=== PATIENT | female | born 1975 | race Caucasian/White ===

== ENCOUNTER → 2017-05-06 10:31 | Outpatient (CLI) | payer BC, SELFPAY ==
--- NOTE | 2017-05-06 10:49 | XR_ITS ---
XR ankle LT min 3V HISTORY: ITS.REASON: S/P FALL, PAIN AND SWELLING ORDERING PHYSICIAN: Sheridan Ballard PATIENT AGE: 41 years COMPARISON: None FINDINGS: No fracture or dislocation. No lytic or blastic change. There is normal mineralization.. The joint spaces are well-preserved. No significant degenerative/arthritic changes. No erosive changes evident. IMPRESSION: Negative ankle, no acute finding
== END ==
PROVIDERS: PCP Nurse Practitioner; Visit Provider Nurse Practitioner
DX: M25.572 Pain in left ankle and joints of left foot (principal); R60.0 Localized edema
CPT/HCPCS: 73610

== ENCOUNTER 2017-05-06 12:35 | Outpatient (RCR) | payer BC, SELFPAY | END 2017-05-06 12:40 | disposition home or self-care (01) | LOC: PT 12:35 | PROVIDERS: PCP Nurse Practitioner; Visit Provider Orthopaedic Surgery | DX: S99.912A Unspecified injury of left ankle, initial encounter (principal); S93.402A Sprain of unspecified ligament of left ankle, initial encounter | CPT/HCPCS: 97760 ==

== ENCOUNTER → 2019-10-06 12:17 | Outpatient (CLI) | payer BC, SELFPAY ==
[2019-10-06 15:10] LABS: Coronavirus 19 IgG Antibody Negative (Negative); Coronavirus 19 IgM Antibody Negative (Negative)
== END ==
PROVIDERS: PCP Family Medicine; Visit Provider Nurse Practitioner
DX: Z03.818 Encounter for observation for suspected exposure to other biological agents ruled out (principal)
CPT/HCPCS: 36415; 86328

== ENCOUNTER → 2019-11-12 12:33 | Outpatient (CLI) | payer BC, SELFPAY ==
[2019-11-12 14:05] LABS: HCG,Quantitative < 2 mIU/ml (0-5.42)
== END ==
PROVIDERS: Visit Provider Family Medicine
DX: N92.6 Irregular menstruation, unspecified (principal)
CPT/HCPCS: 36415; 84702

== ENCOUNTER → 2020-01-30 15:34 | Outpatient (CLI) | payer BC, SELFPAY | PROVIDERS: PCP Family Medicine; Visit Provider Nurse Practitioner | DX: Z20.828 Contact with and (suspected) exposure to other viral communicable diseases (principal); U07.1 COVID-19 | CPT/HCPCS: U0003 ==

== ENCOUNTER → 2023-02-24 06:36 | Outpatient (CLI) | payer BC, SELFPAY ==
--- NOTE | 2023-02-24 06:41 | CT_ITS ---
FINAL REPORT CLINICAL HISTORY: Sinusitis COMPARISON: None FINDINGS: The paranasal sinuses are well aerated. No significant mucoperiosteal thickening is present in the paranasal sinuses. The ostiomeatal units are patent. There is no fracture. There are no air-fluid levels. IMPRESSION: No significant mucoperiosteal thickening is present in the paranasal sinuses, no air-fluid levels are identified. Reviewed, Interpreted and Dictated by Daniel Pinzon MD Transcribed by Poly Pacheco Authenticated and . [facility]
== END ==
PROVIDERS: PCP Internal Medicine; Visit Provider Nurse Practitioner
DX: J32.9 Chronic sinusitis, unspecified (principal)
CPT/HCPCS: 70486

== ENCOUNTER 2024-12-16 08:50 | Outpatient (CLI) | payer BC, SELFPAY ==
--- OUTSIDE RECORDS SUMMARY | 2019-11-23 07:45 | XMS_ITS | Encounter Summary ---
Author Organization [facility] Address [address] [place] [address] Care Team Providers Care Rhia Name Role Phone Zach Stephenson MD Primary Care Provider + Reason for Referral * Diagnostic Imaging (Routine) - Closed Specialty Diagnoses / Procedures Referred By Miles jung Referred To Contact Radiology Diagnoses RLQ abdominal pain Procedures US Non-ob Transvaginal Hermes Conley DO [facility] [address] [place] [phone] Phone: tel: fax: Referral ID Status Reason Start Date Expiration Date Visits Re quested Visits Authorized [id number] Closed 11/15/2019 11/14/2020 1 1 Reason for Visit * Diagnostic Imaging (Routine) - Closed Specialty Diagnoses / Procedures Referred By Contac fabiana Referred To Contact Radiology Diagnoses RLQ abdominal pain Procedures US Non-ob Transvaginal Hermes Conley DO [facility] [address] [phone] Phone: tel: fax: Referral ID Status Reason Start Date Expiration Date Visits Re quested Visits Authorized [id number] Closed 11/15/2019 11/14/2020 1 1 Encounter Details Date Type Department Care Team (Latest Contact Info) Description 11/23/2019 7:45 AM EDT Hospital Encounter [facility] [address] [phone] RLQ abdominal pain Social History Tobacco Use [...] EDT PAT NAME: ADRIANNE TELLONIE MED REC#: [id number] DA: 1975 PAT GEND: F PAT TYPE: O EXAM RAQUEL: [id number] REF PHYS HERMES CONLEY Indication ======== Pelvic [...] pelvic ultrasound Recommendation Follow-up as clinically indicated. School Supervisor: Jayna Dale RDMS Physician: Theron Morris MD Electronically signed by: Theron Morris MD at: 21:44 Procedure Note Theron Morris MD - 11/23/2019 PAT NAME: QUIQUE TELLO [facility] REC#: [id number] DA: 1975 PAT GEND: F PAT TYPE: O EXAM RAQUEL: [id number] REF PHYS HERMES CONLEY Indication ======== Pelvic [...] Vol31.4 cm Endometrial thickness, total3.2 mm Cervical yetycc79.3 mm Right Ovary Rt ovary:Normal Rt ovary D137.8 mm Rt ovary D222.0 mm Rt ovary D39.3 mm Rt ovary Vol4.0 cm Left Ovary ========= Lt ovary:Normal Lt ovary D122.3 mm Lt ovary D213.1 mm Lt ovary D310.50 mm Lt ovary Vol1.6 cm Cul de Sac ========= Normal. No free fluid visualized Impression ========= Normal pelvic ultrasound Recommendation Follow-up as clinically indicated. School Supervisor: Jayna Dale RDID Physician: Theron Morris MD Electronically signed by: Theron Morris MD at: 21:44 us Hermes Conley DO IMG US ORDERABLES Final Re sult documented in this encounter Visit Diagnoses Diagnosis RLQ abdominal pain Abdominal pain, right lower quadrant documented in this encounter Care Teams Rhia Relationship Specialty Start Date End Date Zach Stephenson MD PCP - General Family Medicine 11/15/19 documented as of this encounter
[2024-12-18 13:12] LABS: Cortisol,AM 6.5 ug/dL (6.2-19.4)
--- OUTSIDE RECORDS SUMMARY | 2024-12-19 08:52 | XMS_ITS | Clinical Summary ---
Author Organization [facility] Address [address] [place] [address] Care Team Providers Care Repair Welder Name Role Phone Unavailable Primary Care Provider Unavailabl e Social History Tobacco Use Types Packs/Day Years Used Date Smoking Tobacco: Never Assessed Comments Unknown Sex and Gender Information Value Date Recorded Sex Assigned at Not on file Legal Sex Female 7:59 PM EDT Gender Identity Not on file Sexual Orientation Not on file Plan of Treatment Health Maintenance Due Date Last Done Comments [facility]-Depression Screening 1975 [facility]-Infant/Child/Adol SDOH Screenings 1975 [facility]- SDOH Screenings 1992 [facility]-Adult SDOH Screenings 1992 [facility]-DTaP,Tdap,and Td Vaccine s (1 - Tdap) 1993 [facility]-Hepatitis B Vaccines (1 of 3 - 19+ 3-dose series) 1993 [facility]-Pap Smear 02/27/2002 02/27/1999, 02/12/1998 [facility]-Cervical Cancer Screening 2004 [facility]-HPV/Cotest 2004 02/27/1999, 02/12/1998 CT Colonography 12/11/2019 Colonoscopy 12/11/2019 FIT-DNA 12/11/2019 FIT 12/11/2019 FOBT 12/11/2019 Sigmoidoscopy 12/11/2019 [facility]-Colorectal Cancer Screening 12/11/2019 [id number] Vaccine (1 - season) 2024 [facility]-Influenza Vaccine (#1) 2024 [facility]-Pneumococcal Vaccine: 50 + Years (1 of 1 - PCV) 2024 [facility]-Zoster Vaccines (1 of 2) 2024 HPV Vaccines Aged Out No longer eligi ble based on patient's age to complete this topic [facility]-HIB Vaccines Aged Out No longer e ligible based on patient's age to complete this topic [facility]-Hepatitis A Vaccines Aged Out No longer eligible based on patient's age to complete this topic [facility]-IPV Vaccines Aged Out No longer e ligible based on patient's age to complete this topic [facility]-Rotavirus Vaccines Aged Out No lo nger eligible based on patient's age to complete this topic Procedures Procedure Name Priority Date/Time Associated Diagnosis Comments CYTO DATA CONVERSION Routine 02/27/1999 12:00 AM EST from Last 3 Months or Most Recently Relevant to Health Maintenance Results * Cytology (02/27/1999 12:00 AM EST) 02/27/1999 02/27/1999 Narrative SUNQUEST - 03/26/1999 12:55 PM EST [facility] MR #: [id number] [facility] [place], [place] [address] 1975 (Age: 23) FW Collect Date: 02/27/1999 00:00 Receipt Date: 02/27/1999 00:00 Page 1 DEPARTMENT OF PATHOLOGY AND LABORATORY MEDICINE CYTOPATHOLOGY REPORT Email: [email or web address] [phone] ATTENDING MD/Practitioner: Anya Mckeon MD Service: OB Location: [facility] Reported: 03/26/1999 12:55 Collected: 02/27/1999 00:00 INTERPRETATION CERVICAL/VAGINAL PAP SMEAR: NO DYSPLASTIC OR MALIGNANT CELLS SEEN. SATISFACTORY BUT LIMITED BY THICKNESS OF SMEAR. Electronically Signed Out By PILAR Loja (ASCP) PILAR Christianson (ASCP) PILAR Loaj (ASCP) Cervical cytology is a screening test primarily for squamous cancers and precursors and has associated false negative and positive results. New technologies such as liquid based sampling may decrease but will not eliminate all false negative results. Regular screening and follow-up of unexplained clinical signs and symptoms are recommended to minimize false negative results. Please see the ASCCP website (www.asccp.org) for followup recommendations. If HPV testing was requested, correlation with the results is suggested (please call Microbiology at [phone] for results). CLINICAL INFORMATION: Menstrual History: Date of Last Menstrual Period: {Not Provided} SPECIMEN DESCRIPTION: A: CERVICAL/VAGINAL PAP SMEAR SMEARS: PAP STAIN ICD: V76.2 CERVIX, SPECIAL SCREENING FOR MALIGNANT NEOPLASM F: A; [id number] SCREEN SNOMED CODES: A; [id number] [id number] M-[id number] In cases where a pathologist has signed out the report, the service has been rendered in part by a resident. The signing pathologist has performed and is responsible for the reported pathologic evaluation. us Historical Provider LAB PATHOLOGY ORDERABLES Fin al Result SUNQUEST from Last 3 Months or Most Recently Relevant to Health Maintenance
--- OUTSIDE RECORDS SUMMARY | 2024-12-19 08:52 | XMS_ITS | Clinical Summary ---
Author Organization [facility] Address [address] [place] [address] Care Team Providers Care Bankruptcy Judge Name Role Phone Zach Stephenson MD Primary Care Provider + Allergies No known active allergies Medications Multiple Vitamins-Mineral s (MULTIVITAMIN ADULT PO) Take by mouth. Active Family History Medical History Relation Name Comments Endometrial cancer Maternal Aunt Breast cancer Neg Hx Colon cancer Neg Hx Ovarian cancer Neg Hx Uterine cancer Neg Hx Relation Name Status Comments Maternal Aunt Social History Tobacco Use Types Packs/Day Years [...] e 12/25/2022 Family and Community Support Answer Gennaro e Recorded Help with Day-to-Day Activities Not [...] on file Sexual Orientation Not on file Last Filed Vital Signs Vital Sign Reading Time Taken Comments Blood Pressure 132/86 11/15/2019 2:22 PM EDT Pulse - - Temperature - - Respiratory Rate - - Oxygen Saturation - - Inhaled Oxygen Concentration - - Weight 94.7 kg (208 lb 12.8 oz) 11/15/2019 2:22 PM EDT Height 170.2 cm (5' 7 ) 11/15/2019 2:22 PM EDT Body Mass Index 32.7 11/15/2019 2:22 PM EDT Plan of Treatment Health Maintenance Due Date Last Done Comments Annual Gynecologic Pelvic and Breast Exam 1975 TDAP/TD VACCINES (1 - Tdap) 1993 MAMMOGRAM 2014 ANNUAL PHYSICAL 11/15/2019 HEPATITIS C SCREENING 11/15/2019 COLOGUARD 12/11/2019 COLON CANCER SCREENING 5 YEAR SIGMOIDOSCOPY 12/11/2019 COLONOSCOPY 12/11/2019 COLORECTAL CANCER SCREENING 12/11/2019 CT COLONOGRAPHY 12/11/2019 FECAL OCCULT BLOOD TEST 12/11/2019 FIT Testing (1 year) 12/11/2019 INFLUENZA VACCINE 10/14/2024 Pneumococcal Vaccine 50+ (1 of 1 - PCV) 2024 ZOSTER VACCINE (1 of 2) 2024 Insurance PPO Care Teams Bankruptcy Judge Relationship Specialty Start Date End Date Zach Stephenson MD PCP - General Family Medicine 11/15/19
--- OUTSIDE RECORDS SUMMARY | 2024-12-19 08:53 | XMS_ITS | Data Portability ---
Author Organization [facility] JENNIFER BrooksS FERNWOOD CLOSED Address [address] [place] [address] Care Team Providers Care Editor Managing Newspaper Name Role Phone ZACH STEPHENSON Primary Care Provider [phone] QI PACK Primary Care Provider Assessment Encounter Date Assessment Date Assessment LastModified by Organization Details LastModified Time 03/26/2020 03/26/2020 MLF 1) Intrinsic tightness with moderate imbalances 2) Mild scar adherence along the palm 3) MCP joint capsular stiffness [email or web address] Not available 03/26/2020 08:07:50 Plan of Treatment Reminders Order Date Submit Date Provider Last Modified By Organization Details Last Modified Time Details Appointments None recorded. Lab FSH (follicle -stimulat ing hormone), serum 2024 025 [facility], [address] [place] [address], [id number], 5 16:30:23 estradiol , serum 2024 025 [facility], [address] [place] [address], [id number], 5 16:30:22 lh (luteiniz ing hormone), serum 2024 025 [facility], [address] [place] [address], [id number], 5 16:30:24 general health panel 2024 025 [facility], [address] [place] [address], [id number], 5 13:09:01 pap, LB 2024 025 [facility], [address] [place] [address], [id number], 5 14:22:15 HPV DNA, high-risk 2024 025 [facility], [address] [place] [address], [id number], 5 16:30:33 Referral dermatolo gist referral 2024 025 [email or web address] 3 [facility], [address] [place] [address] , [place] [address], [place], [address], 5 14:01:20 gastroent erologist referral 2024 025 [email or web address] Not available 5 09:01:02 Procedures None recorded. Surgeries None recorded. Imaging MAMMO, screening , tomosynth esis, bilateral , w/ CAD 2024 025 rc [email or web address] Not available 5 08:59:04 US, transvagi nal 2024 025 [email or web address] Not available 5 10:41:46 Medication Orders rizatript an 10 mg disintegr ating tablet 2024 025 maria antonia [facility], [address] [place], [address], 5 12:35:20 Patient TargetsNo targets recorded. Patient Instructions Encounter Date Encounter Id Patient Instructions Last Modified By Organization Details Last Modified Time 03/26/2020 [id number] STG 1) Improving functional AROM to within 80-90% of the unaffected within an appropriate time-frame from the injury/surgery. 2) Obtain intrinsic length with a PDC of < 1cm and within 80-90% of the unaffected in 3-4 weeks 3) To achieve 80-90% of functional fiber optic technician and pinch strength to maintain normal ADL function Rehab potential is Good Plan of Care (POC: 1-2x/week for 4-6 weeks. [email or web address] Not available 03/26/2020 08:07:50 03/26/2020 [id number] Patient is instructed that it is ok to wash the hand with soap and water now that the sutures have been removed, but should not soak the hand in any type of water for 24 hours. Lotion is OK to use after 24 hours, but no Neosporin or other ointments. The 5 pound weight limit is still in effect for the next 4 weeks. Massage over the incision(s) will help to prevent excessive, thick scars. The palm is a callous, so the skin may peel off from around the incision; the patient can trim off any loose, skin with scissors if needed. The surgical area does not need to be covered. Continue therapy to help maintain motion, or continue the exercises that they were shown on their own. The patient will be scheduled for a 4 week follow-up appointment.[email or web address] Not available 03/26/2020 15:57:55 04/21/2024 [id number] 1. Nasal Endosco py performed in office today. Full risks, complications, and benefits of non-operative intervention have been thoroughly discussed. Understanding was expressed, informed consent given, and we will proceed with the discussed operative treatment plan. There were no questions for me at the end of the office visit. 2. Rx- Rizatriptan 10mg tablet, dispense 8 3. F/u prn [email or web address] Not available 04/21/2024 09:03:36 Reason for Referral Termite Inspector Referral for Screening for malignant neoplasm of colon Referring Physician: Comfort Parikh SORT SUPERVISOR, Encounter Date: 04/21/2024 Count Team Clerk Referral for S creening for malignant neoplasm of skin Referring Physician: Comfort Parikh SORT SUPERVISOR, Encounter Date: 04/21/2024 Results Created Date Observation Date Name Description Value Unit Range Abnormal Flag Note LastModifiedBy Organization Detail LastModifiedTime 03/10/20 20 03/12/2020 SARS CoV 2 RNA (COVI D-19) , QL, civil design technician-P CR, respi rator y speci men sars cov2 result NEGATI VE normal Not Available [facility] [address] [place] [address], [id number], 03/12/2020 09:44:29 04/21/19 25 04/21/2024 GENER AL HEALT H PANEL glucose 112 mg/dL 74-100 high Not Available [facility] [address] [place] [address], [id number], 04/21/2024 16:30:20 04/21/19 25 04/21/2024 GENER AL HEALT H PANEL blood urea nitrogen 13 mg/dL 6-20 normal Not Available [facility] [address] [place] [address], [id number], 04/21/2024 16:30:20 04/21/19 25 04/21/2024 GENER AL HEALT H PANEL creatinine 0.68 mg/dL 0.50-0 .95 normal Not Available [facility] [address] [place] [address], [id number], 04/21/2024 16:30:20 04/21/19 25 04/21/2024 GENER AL HEALT H PANEL BUN/creatini ne ratio 19 (calc ) 10-20 normal Not Available [facility] [address] [place] [address], [id number], 04/21/2024 16:30:20 04/21/19 25 04/21/2024 GENER AL HEALT H PANEL sodium 141 mmol/ L 136-14 5 normal Not Available [facility] [address] [place] [address], [id number], 04/21/2024 16:30:20 04/21/19 25 04/21/2024 GENER AL HEALT H PANEL potassium 4.2 mmol/ L 3.4-5. 0 normal Not Available [facility] [address] [place] [address], [id number], 04/21/2024 16:30:20 04/21/19 25 04/21/2024 GENER AL HEALT H PANEL chloride 105 mmol/ L 98-107 normal Not Available [facility] [address] [place] [address], [address], 04/21/2024 16:30:20 04/21/19 25 04/21/2024 GENER AL HEALT H PANEL carbon dioxide 23 mmol/ L 22-31 normal Not Available [facility] [address] [place] [address], [address], 04/21/2024 16:30:20 04/21/19 25 04/21/2024 GENER AL HEALT H PANEL anion gap 13 (calc ) 7-25 normal Not Available [facility] [address] [place] [address], [id number], 04/21/2024 16:30:20 04/21/19 25 04/21/2024 GENER AL HEALT H PANEL calcium 10.1 mg/dL 8.6-10 .2 normal Not Available [facility] [address] [place] [address], [address], 04/21/2024 16:30:20 04/21/19 25 04/21/2024 GENER AL HEALT H PANEL total protein 7.6 g/dL 6.4-8. 3 normal Not Available [facility] [address] [place] [address], [address], 04/21/2024 16:30:20 04/21/19 25 04/21/2024 GENER AL HEALT H PANEL albumin 4.5 g/dL 3.5-5. 2 normal Not Available [facility] [address] [place] [address], [address], 04/21/2024 16:30:20 04/21/19 25 04/21/2024 GENER AL HEALT H PANEL globulin 3.1 1.5-4. 5 normal Not Available [facility] [address] [place] [address], [address], 04/21/2024 16:30:20 04/21/19 25 04/21/2024 GENER AL HEALT H PANEL albumin/glob ulin ratio 1.5 (calc ) 1.1-2. 5 normal Not Available [facility] [address] [place], [address], 04/21/2024 16:30:20 04/21/19 25 04/21/2024 GENER AL HEALT H PANEL bilirubin, total 0.3 mg/dL 0.1-1. 2 normal Not Available [facility] [address] [place], [address], 04/21/2024 16:30:20 04/21/19 25 04/21/2024 GENER AL HEALT H PANEL alkaline phosphatase 97 U/L 30-121 normal Not Available [facility] [address] [place], [address], 04/21/2024 16:30:20 04/21/19 25 04/21/2024 GENER AL HEALT H PANEL AST 26 U/L 0-32 normal Not Available [facility] [address] [place], [address], 04/21/2024 16:30:20 04/21/19 25 04/21/2024 GENER AL HEALT H PANEL ALT 32 U/L 0-33 normal Not Available [facility] [address] [place], [address], 04/21/2024 16:30:20 04/21/19 25 04/21/2024 GENER AL HEALT H PANEL GFR 106 >= 60 normal NOT E New calcu latio n for GFR (CKD- EPI 2020) is formu lated witho ut race adjus tment facto rs at the recom menda tion of the [employer] [facility] and [facility] Nephr ology . This calcu latio n has not been valid ated in pregn ant women . For pedia tric patie nts refer to https ://charles iverson.o rg/pr ofess ional s/KDO QI/gf r_cal culat orPed Not Available [facility] [address] [place] [address], [address], 04/21/2024 16:30:20 04/21/19 25 04/21/2024 GENER AL HEALT H PANEL white blood cells 7.3 10*3/ uL 3.8-10 .8 normal Not Available [facility] [address] [place] [address], [address], 04/21/2024 16:30:20 04/21/19 25 04/21/2024 GENER AL HEALT H PANEL red blood cells 4.85 10*6/ uL 3.80-5 .20 normal Not Available [facility] [address] [place] [address], [id number], 04/21/2024 16:30:20 04/21/19 25 04/21/2024 GENER AL HEALT H PANEL hemoglobin 13.5 g/dL 12.0-1 6.0 normal Not Available [facility] [address] [place] [address], [address], 04/21/2024 16:30:20 04/21/19 25 04/21/2024 GENER AL HEALT H PANEL hematocrit 40.2 % 35.0-4 7.0 normal Not Available [facility] [address] [place] [address], [address], 04/21/2024 16:30:20 04/21/19 25 04/21/2024 GENER AL HEALT H PANEL MCV 83 fL 80-100 normal Not Available [facility] [address] [place] [address], [address], 04/21/2024 16:30:20 04/21/19 25 04/21/2024 GENER AL HEALT H PANEL MCH 28 pg 26-35 normal Not Available [facility] [address] [place] [address], [address], 04/21/2024 16:30:20 04/21/19 25 04/21/2024 GENER AL HEALT H PANEL MCHC 34 g/dL 32-36 normal Not Available [facility] [address] [place] [address], [address], 04/21/2024 16:30:20 04/21/19 25 04/21/2024 GENER AL HEALT H PANEL RDW 15.7 % 11.0-1 5.0 high Not Available [facility] [address] [place] [address], [address], 04/21/2024 16:30:20 04/21/19 25 04/21/2024 GENER AL HEALT H PANEL MPV 7.5 fL 6.2-10 .5 normal Not Available [facility] [address] [place] [address], [address], 04/21/2024 16:30:20 04/21/19 25 04/21/2024 GENER AL HEALT H PANEL platelet count 298 10*3/ uL 150-40 0 normal Not Available [facility] [address] [place] [address], [address], 04/21/2024 16:30:20 04/21/19 25 04/21/2024 GENER AL HEALT H PANEL neutrophil,a bsolute 4.3 10*3/ uL 1.6-8. 4 normal Not Available [facility] [address] [place] [address], [address], 04/21/2024 16:30:20 04/21/19 25 04/21/2024 GENER AL HEALT H PANEL lymphocyte,a bsolute 2.3 10*3/ uL 0.4-5. 1 normal Not Available [facility] [address] [place] [address], [address], 04/21/2024 16:30:20 04/21/19 25 04/21/2024 GENER AL HEALT H PANEL monocyte,abs olute 0.5 10*3/ uL 0.0-1. 2 normal Not Available [facility] [address] [place] [address], [id number], 04/21/2024 16:30:20 04/21/19 25 04/21/2024 GENER AL HEALT H PANEL eosinophil,a bsolute 0.1 10*3/ uL 0.0-0. 8 normal Not Available [facility] [address] [place] [address], [address], 04/21/2024 16:30:20 04/21/19 25 04/21/2024 GENER AL HEALT H PANEL basophil,abs olute 0.0 10*3/ uL 0.0-0. 3 normal Not Available [facility] [address] [place] [address], [address], 04/21/2024 16:30:20 04/21/19 25 04/21/2024 GENER AL HEALT H PANEL % neutrophils 59.1 % 42.0-7 8.0 normal Not Available [facility] [address] [place] [address], [address], 04/21/2024 16:30:20 04/21/19 25 04/21/2024 GENER AL HEALT H PANEL % lymphocytes 32.2 % 11.0-4 7.0 normal Not Available [facility] [address] [place] [address], [address], 04/21/2024 16:30:20 04/21/19 25 04/21/2024 GENER AL HEALT H PANEL % monocytes 6.6 % 0.0-11 .0 normal Not Available [facility] [address] [place] [address], [address], 04/21/2024 16:30:20 04/21/19 25 04/21/2024 GENER AL HEALT H PANEL % eosinophils 1.6 % 0.0-7. 0 normal Not Available [facility] [address] [place] [address], [address], 04/21/2024 16:30:20 04/21/19 25 04/21/2024 GENER AL HEALT H PANEL % basophils 0.5 % 0.0-3. 0 normal Not Available [facility] [address] [place] [address], [address], 04/21/2024 16:30:20 04/21/19 25 04/21/2024 GENER AL HEALT H PANEL nucleated red cells 0.0 % 0.0-0. 9 normal Not Available [facility] [address] [place] [address], [address], 04/21/2024 16:30:20 04/21/19 25 04/21/2024 GENER AL HEALT H PANEL nucleated RBCs, absolute 0.00 10*3/ uL not estab. normal Not Available [facility] [address] [place] [address], [address], 04/21/2024 16:30:20 04/21/19 25 04/21/2024 GENER AL HEALT H PANEL TSH 1.290 u[IU] /mL 0.270- 4.200 normal Not Available [facility] [address] [place] [address], [address], 04/21/2024 16:30:20 04/21/19 25 04/21/2024 ESTRA DIOL estradiol <5.0 pg/mL 0.0-39 8.0 normal Refer ence range is based on non-p regna nt women . NOTE: Due to the risk of cross -reac tivit y, the Marlo Estra diol assay used by our labor anton choe not be order ed when monit oring estra diol level s in patie nts being treat ed with Fulve stran t. An alter tyra metho d such as LC/MS , which is not expec isaac to show cross -reac tivit y to Andrewve cyndi payan be used to measu re estra diol hiwot ntrat ions. Stero id drugs may inter fere with this test. ESTRA DIOL EXPEC ISAAC VALUE S HEALT HY WOMEN : FOLLI CULAR PHASE 12.4 - 233 pg/mL OVULA TION PHASE 41.0 - 398 pg/mL LUTEA L PHASE 22.3 - 341 pg/mL POSTM ENOPA USE < 5.0 - 138 pg/mL HEALT HY PREGN ANT WOMEN : 1st TRIME STER 154 - 3243 pg/mL 2nd TRIME STER 1561 - 21,28 0 pg/mL 3rd TRIME STER 8525 - > 30,00 0 pg/mL . Not Available [facility] [address] [place] [address], [address], 04/21/2024 16:30:22 04/21/19 25 04/21/2024 FOLLI TOAN STIM. HORMO NE follicle stim. hormone 37.4 m[IU] /mL 1.7-13 4.8 normal FSH EXPEC ISAAC VALUE S FEMAL ES: FOLLI CULAR PHASE : 3.5 - 12.5 MIU/M L OVULA TION PHASE : 4.7 - 21.5 MIU/M L LUTEA L PHASE : 1.7 - 7.7 MIU/M L POST MENOP AUSE: 25.8 - 134.8 MIU/M L . Not Available [facility] [address] [place] [address], [address], 04/21/2024 16:30:23 04/21/19 25 04/21/2024 LUTEN IZING HORMO NE lutenizing hormone 27.7 m[IU] /mL 1.0-95 .6 normal LH EXPEC ISAAC VALUE S WOMEN : FOLLI CULAR PHASE 2.4-1 2.6 mIU/m L OVULA TION PHASE 14.0- 95.6 mIU/m L LUTEA L PHASE 1.0-1 1.4 mIU/m L POSTM ENOPA USE 7.7-5 8.5 mIU/m L . Not Available [facility] [place], [address], 04/21/2024 16:30:24 04/21/19 25 04/22/2024 HPV, HIGH RISK high risk HPV Negati ve negati ve normal This assay detec ts E6/E7 viral messe nger RNA (mRNA ) from 14 high- risk HPV types (16,1 8,31, 33,35 ,39,4 5,51, 52,56 , 58,59 ,66,6 8) witho ut diffe renti ation . Sensi tivit y may be affec isaac by speci men colle ction metho ds, stage of infec tion, and the prese nce of inter ferin g subst ances . Resul ts shoul d be inter prete d in conju nctio n with other avail able labor atory and clini willow data. A negat antoinette Aptim a HPV assay resul t does not exclu de the possi bilit y of cytol ogic abnor malit ies or futur e or under lying CIN2, CIN3, or cance r. This test is inten ded for medic al purpo ses and has not been evalu ated in cases of suspe cted abuse . This assay is not inten ded for use as a scree dioni devic e for women under age 30 with ilene l cervi willow cytol ogy. The Aptim a HPV assay is not inten ded to subst itute for regul ar cervi willow cytol ogy. Test metho dolog y is Nucle ic Acid Ampli ficat ion (NAAT ) Not Available [facility] [address] [facility], [place], [address], 04/22/2024 16:30:33 04/21/19 25 04/21/2024 PAP SMEAR Pap smear SEE BELOW normal Depar tment of Patho logy GYNEC OLOGI WILLOW CYTOL OGY REPOR T NAME: STEVEN JONES ANDERS E PATHO LOGY NO.: [id number] Copy to: SOURC E OF SPECI MEN: CERVI WILLOW/E NDOCE RVICA L-THI N PREP RELEV ANT HISTO RY: No LMP given . PMB: Y Comme nt: HPV CO-TE STING SPECI MEN ADEQU ACY SATIS FACTO RY FOR EVALU ATION . ENDOC ERVIC AL/TR ANSFO RMATI ON ZONE COMPO NENT PRESE NT GENER AL CATEG ORIZA TION NEGAT ANTOINETTE FOR INTRA EPITH ELIAL LESIO N OR MALIG FIDE RELAT ED LABOR ATORY RESUL TS Test Name Resul fabiana Colle cted D and T HIGH RISK HPV Negat antoinette 025 10:41 KATHR CARO TESFAYE S, CT (ASCP ) Sushma d Out Date: 05/02 14:21 Cervi willow/v agina l cytol ogy is a scree dioni test with a recog nized false negat antoinette rate. New techn ologi es may decre ase, but will not elimi tyra false negat antoinette resul ts. Regul ar cytol ogy scree dioni is recom trini d to minim ize false negat antoinette resul ts. The ThinP rep(R ) Imagi ng syste m is used to cooper t in prima ry cervi willow cance r scree dioni of ThinP rep(R ) Pap test slide s. Page 1 of 1 Not Available [facility] [address] [place] [address], [place], [address], 05/02/2024 14:22:15 04/21/19 25 01/13/2024 US, trans vagin al No observ ation record ed. [email or web address] Not Available 04/25 15:35:22 05/05/19 25 05/05/2024 US, trans vagin al [facility] [address] [place] [address] Simone jung Name: QUIQUE jung : 975 Simone jung 90 Orderi ng Provid er: COMFORT BEAL GTON EXAM DATE: 2024 EXAM: US PELVIS GOLF COURSE MANAGER TRANSV AGINAL CLINIC AL INFORM ATION: Pain TECHNI QUE: Multip le sonogr aphic images of the pelvis were obtain ed throug h transv aginal route. COMPAR ZOE: None. FINDIN GS: UTERUS : Size = 5.5 x 2.3 x 4.4 cm. EMS thickn ess = 4.2 mm. Anteve rted, antefl exed, normal in size. Hetero geneou s appear ance of the uterus can indica te tiny underl raul fibroi ds. RIGHT ADNEXA : Ovary size = 2.7 x 1.2 x 1.9 cm. Normal in size and appear ance. No adnexa l mass. LEFT ADNEXA : Ovary size = 1.7 x 1.3 x 1.2 cm. Normal in size and appear ance. No adnexa l mass. CUL-DE -SAC: No fluid or mass IMPRES ANTHONY: Hetero geneou s appear ing uterus Interp reted By: Mike Lechuga MD Electr onical ly Signed By: Mike Lechuga MD on 025 12:48 PM [facility] [address], [place], [address], 05/12/2024 14:21:13 Result Notes None recorded. Problems No Known Problems Procedures Surgical History Date Name Laterality Status Provider Name and Address Organization Details Recorded Time 04/21/19 25 Pap Smear collection completed COMFORT PARIKH, TELEPHONE TRIAGE NURSE [address] [place], [address], [facility] 04/21/2024 12:11:54 04/21/19 25 Endoscopy Nasal; Diagnostic completed [facility] 04/21/2024 09:00:17 03/26/19 21 OT Manual Therapy completed ROSANA MUNOZ/L, CHT [address] [place], [address], [facility] 03/26/2020 16:56:55 03/26/19 21 PT Hot/Cold Pack completed ROSANA MUNOZ/L, CHT [address] [place], [address], [facility] 03/26/2020 16:03:19 03/19/19 21 OT Evaluation - Moderate complexity completed ROSANA MUNOZ/[place], CHT [address] [place], [address] 03/19/2020 08:04:12 04/21/18 97 functional endoscopic sinus surgery completed [facility] 04/21/2024 08:32:30 [facility] 10:03:30 Imaging Results None recorded. Procedure Notes None recorded. Medical Equipment None Reported. Allergies No known drug allergies Medications Name Sig Start Date Stop Date Status Note LastModified by Organization Details LastModified Time tramadol 50 mg tablet TAKE 1 TABL PO Q 6 HRS PRN FOR UNCONTROL LED PAIN 03/26 completed Not Available Not Available Not Available meloxicam 7.5 mg tablet TAKE 1 TABLE PO QD WITH FOOD REGARDLES S OF PAIN LEVEL FOR 1 WEEK. THEN TAKE 1 TABLET PO QD ONLY PRN FOR PAIN RELIEF THEREAFTE R 03/26 completed Not Available Not Available Not Available rizatriptan 10 mg disintegrat ing tablet TAKE 1 TABLET, ONLY 1 IN 24 HRS, WITH THE ONSET OF SYMPTOMS. UP TO 8 IN 30 DAYS 2024 active Not Available Not Available Not Avai lable Neurontin 100 mg capsule TAKE 1 CAPSULE PO QHS FOR 1 WEEK 03/26 completed Not Available Not Available Not Available Ubrelvy 100 mg tablet Take by oral route as needed. active Not Available Not Available No t Available Vitals Date Recorded Body height Body mass index (BMI) Body weight Pain severity - 0-10 verbal numeric rating [Score] - Reported Systolic And Diastolic Provider Name and Address Organization Details Last Updated DateTime 03/26/2020 170.18 cm 31.3 kg/m2 49339.47 g 5 220/130 mm[Hg] Eloisa Lemus [facility] 1 15:42:25 Date Recorded Body temperature Body height Body mass index (BMI) Body weight Heart rate Systolic And Diastolic Provider Name and Address Organization Details Last Updated DateTime 5 97.1 [degF] 170.18 cm 35.8 kg/m2 131158. 86 g 102 /min 164/109 mm[Hg] Juan Carlos Earl [facility] 5 08:11:12 Date Recorded Body height Body mass index (BMI) Body weight Systolic And Diastolic Provider Name and Address Organization Details Last Updated DateTime 04/21/2024 170.18 cm 35.1 kg/m2 676197.69 g 160/80 mm[Hg] [facility] 04/21[facility]24 10:01:17 Social History Question Answer Notes LastModified by Organizat ion Details LastModified Time Tobacco Smoking Status Never Smoker Eloisa Ybarar [facility] 02/22/2020 10:50:00 Which Of Your Hands Is Dominant? Right Information not available 03/26/2020 What Was The Date Of Your Most Recent Tobacco Screening? 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 Family History Relationship Description Onset Age of this Age Resolved Age Notes LastModified by Organization Details LastModified Time Father No current problems or disability [email or web address] Not available 03/17 09:09:10 Mother No current problems or disability [email or web address] Not available 03/17 09:09:10 Maternal Aunt Endometrial carcinoma [email or web address] Not available 2024 10:03:20 Medical History No medical history recorded. Gynecological History Statement/Question Response Abnormal Pap Y Flow Heavy Regular Cycles N Date of Last Mammogram Date of LMP 10/14/2022 STIs/STDs N Real Heavy Periods Y HPV Vaccine N Duration of Flow (days) 5 Age at Menarche 12 Current Control Method Tubal Ligat ion Painful Periods Y Menses Monthly N Date of Last Pap Smear Obstetrics History GPAL:G 2 P 0 0 0 0 Past Encounters Encounter ID Performer Location Encounter Start Date Encounter Closed Date Diagnosis/Indication Diagnosis SNOMED-CT Code Diagnosis ICD10 Code Diagnosis IMO Codes Diagnosis Note [id number] ZACH LONDONO MD [facility] [address] [place] [id number] 02/22/2020 10:44:52 02/22/2020 11:10:45 Trigger finger of left hand [id number] M65.30 Left ring finger, with retinacula r ganglion cyst of the palmar digital flexion crease. She will consider surgical management which will consist of excision of the cyst with release of the A1 carley. This can be done under local anesthetic Scheduled for 15 minutes, I would make incision of the palmar digital flexion crease and use the S2S tome to release the A1 carley after excision of the cyst. She will call to schedule, we can also try an injection through the cystTo give her some relief but she has had injections in the past without resolving the issue. [id number] ZACH LONDONO MD SURGERY SCHEDULE [address] [place] [address] 03/13/2020 11:06:54 03/13/2020 11:08:22 [id number] LETTY CALZADA, OTR/L, CHT PHYSICAL THERAPY / HAND THERAPY [facility] [address] [place] [address] 03/19/2020 09:35:49 03/19/2020 10:38:28 Trigger finger of left hand [id number] M65.30 TFR Ring Finger [id number] ROSANA MUNOZ/L, CHT PHYSICAL THERAPY / HAND THERAPY [facility] [address] [place] [address] 03/26/2020 15:33:23 03/26/2020 17:16:51 Trigger finger of left hand [id number] M65.30 TFR Ring Finger [id number] WILLEM CALDERON PA-C [facility]TH[facility] [address] [address] 03/26/2020 15:31:29 03/26/2020 15:54:40 Trigger finger of left hand [id number] M65.30 doing well status post release of the left ring trigger finger and excision of a retinacula r ganglion cyst. 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 Rec lipid panel with PCP for monitoring . Likely somewhat genetic.Di scussed that there are not great treatment options. hyferation , excision.O ffered to send to Dr. Parry to discuss treatment options - pt declines at this time Solar lentigo [id number] L 81.4 - Benign brown spots- Sun-induce d [id number] TATIANA BHAKTA MD [facility] [address] [place] [address] 04/21/2024 08:03:50 04/21/2024 09:11:30 Nasal congestion [id number] R09.81 right sided Allergic rhinitis 760638 04 J30.9 immunother apy in childhood Migraine 29002634 G43.90 9 right sided nasal migraine, teo-sensi tivity and fragrance sensitivit y History of nasal sinus surgery [id number] Z98.890 1996 @ , ESS and rhinoplast y [id number] COMFORT PARIKH APRN [facility] [address] [place] [address] 04/21/2024 09:45:33 04/21/2024 10:37:12 Screening for malignant neoplasm of cervix 914375405 Z12.4 Gynecologi c examination 21151916 Z01.419 PAP todaywill contact patient with resultspat ient to follow up in one year or sooner as needed Pain in pelvis 91194655 R10.2 patient reports intermitte nt pain in right lower pelvis since Septemberwill evaluate with ultrasound and labspatien t to follow up on same day as ultrasound to discuss results and plan of care Amenorrhea [id number] N91. 2 No menses since 3pati ent reports that she did not have ultrasound or labs that indicated menopausew ill evaluate with labs and ultrasound since patient also reporting pelvic painpatien t to follow up on same day as ultrasound to discuss results and plan of care Screening for malignant neoplasm of colon 230603072 Z12.11 initial routine screening Screening for malignant neoplasm of skin 323379184 Z12.83 routine screening Screening for malignant neoplasm of breast 886242197 Z12.39 repeat mammogram Elevated blood-pressure reading without diagnosis of hypertension 762225606 R03.0 BP today of 160/80Disc ussed elevation with patient. Patient reports that she just came from ENT where scope was done and that she will follow this with recheck at home and with PCP Health Concerns Section Related Observation LastModified by Organization Detai ls LastModified Time None Recorded Concern Status LastModified by Organization Details LastModified Time None Recorded Advance Directives Directive None Recorded Payers Insurance Date Sequence Insurance Name Policy Number Policy [place] Covered Member ID [place] Member ID Guarantor Name 07/18/2024 1 [place] [id number] Pramod Tello [id number] Quique Tello 03/19/2020 1 [place] [id number] Pramod Tello [id number] Quique Tello Notes Date Note Type Note Provider Name and Address Organization Details Recorded Time 03/26/2020 text/html The patient is here for a routine scheduled postoperative follow-up visit. Her blood pressure is extremely high at today's visit at 220/130 mmHg. She denies any shortness of breath, chest pain, no headache. Primary Care Physician: Dr. Zach Stephenson Hand dominance: Right Location: Left RF Pain level: 10 Recent Surgery: Yes Procedure: Release trigger finger with S2S trigger tome; Excision retinacular ganglion cyst right ring finger Date of surgery: 03-13-2020 Duration: 13 day(s) GP 06-09-20 In office procedure? No Previous upper extremity surgery? 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 Yes Is this injury associated with a Workers Compensation claim? No patient states she removed her sx dressing on sutures removed WILLEM CALDERON PA-C [address] [place], [address], [facility] 03/26/2020 15:58:00 03/26/2020 text/html Patient History: Pt reports that she got her sutures out, and she is progressing very well. Pain (0-10): No c/o pain Pain in last 24 hours (0-10: How often symptoms experienced Constantly (76-100%), Frequently (51-75%), Occasionally (26-50%), Intermittently (0-25%): Interm. prior to surgery DOI: DOS: 03-13-2020 Performance Deficits: Pt reports having at least 3 performance deficits that are limiting ADL and IADL functional secondary to having hand/arm surgery/injury. LETTY CALZADA, OTR/L, CHT [address] [place], [address], [facility] 03/26/2020 16:57:16 03/17/2024 text/html Specific spot to check Location: Spot under left eyebrowGeneral duration: ~2 yearsPredominant symptom:asymptomaticPri or treatment(s):[place] oil, apple cider viengar, histofreezeHistory of evolution:changing PRIYANKA WHITE PA-C [address] [place], [address], [facility] 03/17/2024 12:20:27 04/21/2024 text/html ROS as noted in the HPI Quique comes in today for an evaluation of right sided nasal congestion. Pt has a history of ESS and rhinoplasty performed at . She was able to breath well through her nose for many years after her operation, but has had right sided nasal congestion for the past 5+ years. She has used Flonase nasal spray in the past, but not recently. Pt does suffer from seasonal allergies. She was on allergy shots in childhood. Pt has frequent headaches presenting the the right frontal region. Her headaches are often triggered by changes and weather and by strong fragrances. PT has tried using sumatriptan to treat her migraine in the past. TATIANA BHAKTA MD [address] [place], [address], [facility] 04/21/2024 18:52:12 04/21/2024 text/html 48 year old female presents today as new patient for annual WWElast PAP: none on record: patient reports PAP 2019: LMP: 3denies any further bleeding or spotting since then current contraception: BTL last mammogram: none on record: per patient report 2019 colon screening: none on record: patient reports that she has not had colon screening yet family history: negative for breast, colon or ovarian cancermaternal aunt with endometrial cancer COMFORT PARIKH APRN [address] [place], [address], [facility] 04/21/2024 12:13:26 OBGyn Episode No OBEpisode recorded.
== END 2024-12-16 23:59 ==
LOC: LAB.DROPOF 12-19 08:50
PROVIDERS: PCP Nurse Practitioner Family; Visit Provider Nurse Practitioner Family
DX: R79.89 Other specified abnormal findings of blood chemistry (principal)
CPT/HCPCS: 82533

== ENCOUNTER 2025-01-13 12:24 | Outpatient (CLI) | payer BC, SELFPAY ==
--- OUTSIDE RECORDS SUMMARY | 2019-11-23 07:45 | XMS_ITS | Encounter Summary ---
Author Organization [facility] Address [address] [place] [address] Care Team Providers Care Aerial Survey Technician Name Role Phone Zach Stephenson MD Primary Care Provider + Reason for Referral * Diagnostic Imaging (Routine) - Closed Specialty Diagnoses / Procedures Referred By Miles jung Referred To Contact Radiology Diagnoses RLQ abdominal pain Procedures US Non-ob Transvaginal Hermes Conley DO [facility] [address] [place] [phone] Phone: tel: fax: Referral ID Status Reason Start Date Expiration Date Visits Re quested Visits Authorized [id number] Closed 11/15/2019 11/14/2020 1 1 Reason for Visit * Diagnostic Imaging (Routine) - Closed Specialty Diagnoses / Procedures Referred By Contac fabiana Referred To Contact Radiology Diagnoses RLQ abdominal pain Procedures US Non-ob Transvaginal Hermes Conley DO [facility] [address] [phone] Phone: tel: fax: Referral ID Status Reason Start Date Expiration Date Visits Re quested Visits Authorized [id number] Closed 11/15/2019 11/14/2020 1 1 Encounter Details Date Type Department Care Team (Latest Contact Info) Description 11/23/2019 7:45 AM EDT Hospital Encounter [facility] [address] [phone] RLQ abdominal pain Social History Tobacco Use Types Packs/Day Years Used Date Smoking Tobacco: Never Smokeless Tobacco: Never Alcohol Use Standard Drinks/Week Comments Not Currently 0 (1 standard drink = 0.6 oz pur e alcohol) Abuse Screen Answer Date Recorded Unsafe at Home or Work/School Not on file Feels Threatened by Someone? Not on file 02/2023 Does Anyone Keep You from Co ntacting Others or Doint Things Outside the Home? Not on file 12/25/2022 Physical Sign of Abuse Present Not on file 1 Housing Stability Answer Date Recorded Current Living Arrangements Not on file 12/14 Potentially Unsafe Housing Conditions Not on basil e 12/25/2022 Family and Community Support Answer Raquel e Recorded Help with Day-to-Day Activities Not on file 12/25/2022 Lonely or Isolated Not on file 12/25/2022 Employment Answer Date Recorded Do you want help finding or keeping work or a rose b? Not on file 12/25/2022 Disabilities Answer Date Recorded Concentrating, Remembering, or Making Decisions Difficulty Not on file 12/25/2022 Doing Errands Independently Difficulty Not on fi le 12/25/2022 Education Answer Date Recorded Help with school or training? Not on file Preferred Language Not on file 12/25/2022 Comments Unknown Sex and Gender Information Value Date Recorded Sex Assigned at Not on file Legal Sex Female 2:51 PM EDT Gender Identity Not on file Sexual Orientation Not on file documented as of this encounter Plan of Treatment Not on file documented as of this encounter Procedures Procedure Name Priority Date/Time Associated Diagnosis Comments US NON-OB TRANSVAGINAL Routine 11/23/2019 8:38 AM EDT RLQ abdominal pain documented in this encounter Results * US Non-ob Transvaginal (11/23/2019 8:38 AM EDT) Anatomical Region Laterality Modality Body Ultrasound 11/23/2019 9:23 AM EDT Narrative 11/23/2019 9:44 PM EDT PAT NAME: ADRIANNE TELLONIE MED REC#: [id number] DA: 1975 PAT GEND: F PAT TYPE: O EXAM RAQUEL: [id number] REF PHYS HERMES CONLEY Indication ======== Pelvic pain - RLQ Dx: RLQ abdominal pain [R10.31 (ICD-10-CM)] History ====== Previous Outcomes 4 Para 2 Assessment LMP on 10/04/2019 Method ======= Voluson E6, Transvaginal ultrasound examination, Color Doppler flow performed, 3D ultrasound examination. View: Adequate view Uterus ====== Uterus: Normal Uterus position: Retroverted Description of uterine malformations: none Myometrium: Homogeneous Endometrium: Uniform Cervix details: Normal Uterus long 39 mm Uterus ap 33 mm Uterus tr 46 mm Uterus Vol 31.4 cm Endometrial thickness, total 3.2 mm Cervical length 23.3 mm Right Ovary Rt ovary: Normal Rt ovary D1 37.8 mm Rt ovary D2 22.0 mm Rt ovary D3 9.3 mm Rt ovary Vol 4.0 cm Left Ovary ========= Lt ovary: Normal Lt ovary D1 22.3 mm Lt ovary D2 13.1 mm Lt ovary D3 10.50 mm Lt ovary Vol 1.6 cm Cul de Sac ========= Normal. No free fluid visualized Impression ========= Normal pelvic ultrasound Recommendation Follow-up as clinically indicated. Pizza Chef: Jayna Dale RDMS Physician: Theron Morris MD Electronically signed by: Theron Morris MD at: 21:44 Procedure Note Theron Morris MD - 11/23/2019 PAT NAME: QUIQUE TELLO [facility] REC#: [id number] DA: 1975 PAT GEND: F PAT TYPE: O EXAM RAQUEL: [id number] REF PHYS HERMES CONLEY Indication ======== Pelvic pain - RLQ Dx: RLQ abdominal pain [R10.31 (ICD-10-CM)] History ====== Previous Outcomes Gravida4 Para2 Assessment LMP on 10/04/2019 Method ======= Voluson E6, Transvaginal ultrasound examination, Color Doppler flowperformed, 3D ultrasound examination. View: Adequate view Uterus ====== Uterus:Normal Uterus position:Retroverted Description of uterine malformations:none Myometrium:Homogeneous Endometrium:Uniform Cervix details:Normal Uterus long39 mm Uterus ap33 mm Uterus tr46 mm Uterus Vol31.4 cm Endometrial thickness, total3.2 mm Cervical zvwace12.3 mm Right Ovary Rt ovary:Normal Rt ovary D137.8 mm Rt ovary D222.0 mm Rt ovary D39.3 mm Rt ovary Vol4.0 cm Left Ovary ========= Lt ovary:Normal Lt ovary D122.3 mm Lt ovary D213.1 mm Lt ovary D310.50 mm Lt ovary Vol1.6 cm Cul de Sac ========= Normal. No free fluid visualized Impression ========= Normal pelvic ultrasound Recommendation Follow-up as clinically indicated. Pizza Chef: Jayna Dale RDRI Physician: Theron Morris MD Electronically signed by: Theron Morris MD at: 21:44 us Hermes Conley DO IMG US ORDERABLES Final Re sult documented in this encounter Visit Diagnoses Diagnosis RLQ abdominal pain Abdominal pain, right lower quadrant documented in this encounter Care Teams Aerial Survey Technician Relationship Specialty Start Date End Date Zach Stephenson MD PCP - General Family Medicine 11/15/19 documented as of this encounter
--- OUTSIDE RECORDS SUMMARY | 2025-01-13 12:26 | XMS_ITS | Clinical Summary ---
Author Organization [facility] Address [address] [place] [address] Care Team Providers Care Conductor And Engineer Name Role Phone Zach Stephenson MD Primary [...] of 2) 2024 Insurance PPO Care Teams Conductor And Engineer Relationship Specialty Start Date End Date Zach Stephenson MD PCP - General Family Medicine 11/15/19
--- OUTSIDE RECORDS SUMMARY | 2025-01-13 12:27 | XMS_ITS | Data Portability ---
Author Organization [facility] JENNIFER BrooksS [place] [facility] Address [address] [place] [address] Care Team Providers Care Health Outcomes Liaison Name Role Phone ZACH STEPHENSON Primary Care Provider [phone] QI PACK Primary Care Provider Assessment Encounter Date Assessment Date Assessment LastModified by Organization Details LastModified Time 03/26/2020 03/26/2020 MLF 1) Intrinsic tightness with moderate imbalances 2) Mild scar adherence along the palm 3) MCP joint capsular stiffness [email or web address] Not available 03/26/2020 08:07:50 Plan of Treatment Reminders Order Date Submit Date Provider Last Modified By Organization Details Last Modified Time Details Appointments None recorded. Lab FSH (follicle -stimulat ing hormone), serum 2024 025 [facility], [address] [place] [address], [address], 5 16:30:23 estradiol , serum 2024 025 [facility], [address] [place] [address], [address], 5 16:30:22 lh (luteiniz ing hormone), serum 2024 025 [facility], [address] [place] [address], [address], 5 16:30:24 general health panel 2024 025 [facility], [address] [place] [address], [address], 5 13:09:01 pap, LB 2024 025 [facility], [address] [place] [address], [address], 5 14:22:15 HPV DNA, high-risk 2024 025 [facility], [address] [place] [address], [address], 5 16:30:33 Referral dermatolo gist referral 2024 025 [email or web address] 3 [facility] Dermatology [facility], [address] [place] [address] , [place] [address], [place], [address], 5 14:01:20 gastroent erologist referral 2024 025 [email or web address] Not available 5 09:01:02 Procedures None recorded. Surgeries None recorded. Imaging MAMMO, screening , tomosynth esis, bilateral , w/ CAD 2024 025 rc [email or web address] Not available 5 08:59:04 US, transvagi nal 2024 025 [facility] 9 Not available 5 10:41:46 Medication Orders rizatript an 10 mg disintegr ating tablet 2024 025 maria antonia [facility], [address] [place], [address], 5 12:35:20 Patient TargetsNo targets recorded. Patient Instructions Encounter Date Encounter Id Patient Instructions Last Modified By Organization Details Last Modified Time 03/26/2020 [id number] STG 1) Improving functional AROM to within 80-90% of the unaffected within an appropriate time-frame from the injury/surgery. 2) Obtain intrinsic length with a PDC of < 1cm and within 80-90% of the unaffected in 3-4 weeks 3) To achieve 80-90% of functional chairman and pinch strength to maintain normal ADL function Rehab potential is Good Plan of Care (POC: 1-2x/week for 4-6 weeks. [email or web address] Not available 03/26/2020 08:07:50 03/26/2020 [id number] Patient is instructed that it is ok [...] appointment.дмитрий lee Not available 03/26/2020 15:57:55 04/21/2024 [id number] 1. Nasal Endosco py performed in office [...] Not available 04/21/2024 09:03:36 Reason for Referral Infusion Rn Referral for Screening for malignant neoplasm of colon Referring Physician: Comfort Parikh PAN OPERATOR, Encounter Date: 04/21/2024 [place]older Referral for S creening for malignant neoplasm of skin Referring Physician: Comfort Parikh PAN OPERATOR, Encounter Date: 04/21/2024 Results Created Date Observation Date Name Description Value Unit Range Abnormal Flag Note LastModifiedBy Organization Detail LastModifiedTime 03/10/20 20 03/12/2020 SARS CoV 2 RNA (COVI D-19) , QL, food and beverage service manager-P CR, respi rator y speci men sars cov2 result NEGATI VE normal Not Available [facility] [address] [place] [address], [address], 03/12/2020 09:44:29 04/21/19 25 04/21/2024 GENER AL HEALT H PANEL glucose 112 mg/dL 74-100 high Not Available [facility] [address] [place] [address], [address], 04/21/2024 16:30:20 04/21/19 25 04/21/2024 GENER AL HEALT H PANEL blood urea nitrogen 13 mg/dL 6-20 normal Not Available [facility] [address] [place] [address], [address], 04/21/2024 16:30:20 04/21/19 25 04/21/2024 GENER AL HEALT H PANEL creatinine 0.68 mg/dL 0.50-0 .95 normal Not Available [facility] [address] [place] [address], [address], 04/21/2024 16:30:20 04/21/19 25 04/21/2024 GENER AL HEALT H PANEL BUN/creatini ne ratio 19 (calc ) 10-20 normal Not Available [facility] [address] [place] [address], [address], 04/21/2024 16:30:20 04/21/19 25 04/21/2024 GENER AL HEALT H PANEL sodium 141 mmol/ L 136-14 5 normal Not Available [facility] [address] [place] [address], [address], 04/21/2024 16:30:20 04/21/19 25 04/21/2024 GENER AL HEALT H PANEL potassium 4.2 mmol/ L 3.4-5. 0 normal Not Available [facility] [address] [place] [address], [address], 04/21/2024 16:30:20 04/21/19 25 04/21/2024 GENER AL HEALT H PANEL chloride 105 mmol/ L 98-107 normal Not Available [facility] [address] [place] [address], [address], 04/21/2024 16:30:20 04/21/19 25 04/21/2024 GENER AL HEALT H PANEL carbon dioxide 23 mmol/ L 22-31 normal Not Available [facility] [address] [place] [address], [address], 04/21/2024 16:30:20 04/21/19 25 04/21/2024 GENER AL HEALT H PANEL anion gap 13 (calc ) 7-25 normal Not Available [facility] [address] [place] [address], [address], 04/21/2024 16:30:20 04/21/19 25 04/21/2024 GENER AL HEALT H PANEL calcium 10.1 mg/dL 8.6-10 .2 normal Not Available [facility] [address] [place] [address], [address], 04/21/2024 16:30:20 04/21/19 25 04/21/2024 GENER AL HEALT H PANEL total protein 7.6 g/dL 6.4-8. 3 normal Not Available [facility] [address] [place] [address], [address], 04/21/2024 16:30:20 04/21/19 25 04/21/2024 GENER AL HEALT H PANEL albumin 4.5 g/dL 3.5-5. 2 normal Not Available [facility] [address] [place] [address], [address], 04/21/2024 16:30:20 04/21/19 25 04/21/2024 GENER AL HEALT H PANEL globulin 3.1 1.5-4. 5 normal Not Available [facility] [address] [place] [address], [address], 04/21/2024 16:30:20 04/21/19 25 04/21/2024 GENER AL HEALT H PANEL albumin/glob ulin ratio 1.5 (calc ) 1.1-2. 5 normal Not Available [facility] [address] [place], [address], 04/21/2024 16:30:20 04/21/19 25 04/21/2024 GENER AL HEALT H PANEL bilirubin, total 0.3 mg/dL 0.1-1. 2 normal Not Available [facility] [address] [place], [address], 04/21/2024 16:30:20 04/21/19 25 04/21/2024 GENER AL HEALT H PANEL alkaline phosphatase 97 U/L 30-121 normal Not Available [facility] [address] [place], [address], 04/21/2024 16:30:20 04/21/19 25 04/21/2024 GENER AL HEALT H PANEL AST 26 U/L 0-32 normal Not Available [facility] [address] [place], [address], 04/21/2024 16:30:20 04/21/19 25 04/21/2024 GENER AL HEALT H PANEL ALT 32 U/L 0-33 normal Not Available [facility] [address] [place], [address], 04/21/2024 16:30:20 04/21/19 25 04/21/2024 GENER AL [...] s/KDO QI/gf r_cal culat orPed Not Available [facility] [address] [place] [address], [address], 04/21/2024 16:30:20 04/21/19 25 04/21/2024 GENER AL HEALT H PANEL white blood cells 7.3 10*3/ uL 3.8-10 .8 normal Not Available [facility] [address] [place] [address], [address], 04/21/2024 16:30:20 04/21/19 25 04/21/2024 GENER AL HEALT H PANEL red blood cells 4.85 10*6/ uL 3.80-5 .20 normal Not Available [facility] [address] [place] [address], [address], 04/21/2024 16:30:20 04/21/19 25 04/21/2024 GENER AL HEALT H PANEL hemoglobin 13.5 g/dL 12.0-1 6.0 normal Not Available [facility] [address] [place] [address], [address], 04/21/2024 16:30:20 04/21/19 25 04/21/2024 GENER AL HEALT H PANEL hematocrit 40.2 % 35.0-4 7.0 normal Not Available [facility] [address] [place] [address], [address], 04/21/2024 16:30:20 04/21/19 25 04/21/2024 GENER AL HEALT H PANEL MCV 83 fL 80-100 normal Not Available [facility] [address] [place] [address], [address], 04/21/2024 16:30:20 04/21/19 25 04/21/2024 GENER AL HEALT H PANEL MCH 28 pg 26-35 normal Not Available [facility] [address] [place] [address], [address], 04/21/2024 16:30:20 04/21/19 25 04/21/2024 GENER AL HEALT H PANEL MCHC 34 g/dL 32-36 normal Not Available [facility] [address] [place] [address], [address], 04/21/2024 16:30:20 04/21/19 25 04/21/2024 GENER AL HEALT H PANEL RDW 15.7 % 11.0-1 5.0 high Not Available [facility] [address] [place] [address], [address], 04/21/2024 16:30:20 04/21/19 25 04/21/2024 GENER AL HEALT H PANEL MPV 7.5 fL 6.2-10 .5 normal Not Available [facility] [address] [place] [address], [address], 04/21/2024 16:30:20 04/21/19 25 04/21/2024 GENER AL HEALT H PANEL platelet count 298 10*3/ uL 150-40 0 normal Not Available [facility] [address] [place] [address], [address], 04/21/2024 16:30:20 04/21/19 25 04/21/2024 GENER AL HEALT H PANEL neutrophil,a bsolute 4.3 10*3/ uL 1.6-8. 4 normal Not Available [facility] [address] [place] [address], [address], 04/21/2024 16:30:20 04/21/19 25 04/21/2024 GENER AL HEALT H PANEL lymphocyte,a bsolute 2.3 10*3/ uL 0.4-5. 1 normal Not Available [facility] [address] [place] [address], [address], 04/21/2024 16:30:20 04/21/19 25 04/21/2024 GENER AL HEALT H PANEL monocyte,abs olute 0.5 10*3/ uL 0.0-1. 2 normal Not Available [facility] [address] [place] [address], [address], 04/21/2024 16:30:20 04/21/19 25 04/21/2024 GENER AL HEALT H PANEL eosinophil,a bsolute 0.1 10*3/ uL 0.0-0. 8 normal Not Available [facility] [address] [place] [address], [address], 04/21/2024 16:30:20 04/21/19 25 04/21/2024 GENER AL HEALT H PANEL basophil,abs olute 0.0 10*3/ uL 0.0-0. 3 normal Not Available [facility] [address] [place] [address], [address], 04/21/2024 16:30:20 04/21/19 25 04/21/2024 GENER AL HEALT H PANEL % neutrophils 59.1 % 42.0-7 8.0 normal Not Available [facility] [address] [place] [address], [address], 04/21/2024 16:30:20 04/21/19 25 04/21/2024 GENER AL HEALT H PANEL % lymphocytes 32.2 % 11.0-4 7.0 normal Not Available [facility] [address] [place] [address], [address], 04/21/2024 16:30:20 04/21/19 25 04/21/2024 GENER AL HEALT H PANEL % monocytes 6.6 % 0.0-11 .0 normal Not Available [facility] [address] [place] [address], [address], 04/21/2024 16:30:20 04/21/19 25 04/21/2024 GENER AL HEALT H PANEL % eosinophils 1.6 % 0.0-7. 0 normal Not Available [facility] [address] [place] [address], [address], 04/21/2024 16:30:20 04/21/19 25 04/21/2024 GENER AL HEALT H PANEL % basophils 0.5 % 0.0-3. 0 normal Not Available [facility] [address] [place] [address], [address], 04/21/2024 16:30:20 04/21/19 25 04/21/2024 GENER AL HEALT H PANEL nucleated red cells 0.0 % 0.0-0. 9 normal Not Available [facility] [address] [place] [address], [address], 04/21/2024 16:30:20 04/21/19 25 04/21/2024 GENER AL HEALT H PANEL nucleated RBCs, absolute 0.00 10*3/ uL not estab. normal Not Available [facility] [address] [place] [address], [address], 04/21/2024 16:30:20 04/21/19 25 04/21/2024 GENER AL HEALT H PANEL TSH 1.290 u[IU] /mL 0.270- 4.200 normal Not Available [facility] [address] [place] [address], [address], 04/21/2024 16:30:20 04/21/19 25 04/21/2024 ESTRA DIOL [...] be used to measu re estra diol ihwot ntrat ions. Stero id drugs may inter [...] > 30,00 0 pg/mL . Not Available [facility] [address] [place] [address], [address], 04/21/2024 16:30:22 04/21/19 25 04/21/2024 FOLLI TOAN [...] - 134.8 MIU/M L . Not Available [facility] [address] [place] [address], [address], 04/21/2024 16:30:23 04/21/19 25 04/21/2024 LUTEN IZING HORMO NE lutenizing hormone 27.7 m[IU] /mL 1.0-95 .6 normal LH EXPEC ISAAC VALUE S WOMEN : FOLLI CULAR PHASE 2.4-1 2.6 mIU/m L OVULA TION PHASE 14.0- 95.6 mIU/m L LUTEA L PHASE 1.0-1 1.4 mIU/m L POSTM ENOPA USE 7.7-5 8.5 mIU/m L . Not Available [facility] [place], [address], 04/21/2024 16:30:24 04/21/19 25 04/22/2024 HPV, HIGH RISK high risk HPV Negati ve negati ve normal This assay detec ts E6/E7 viral messe nger RNA (mRNA ) from 14 high- risk HPV types (16,1 8,31, 33,35 ,39,4 5,51, 52,56 , 58,59 ,66,6 8) witho ut diffe renti ation . Sensi tivit y may be affec siaac by speci men colle ction metho ds, [...] Ampli ficat ion (NAAT ) Not Available [facility] [address] [facility], [place], [address], 04/22/2024 16:30:33 04/21/19 25 04/21/2024 PAP SMEAR [...] s. Page 1 of 1 Not Available [facility] [address] [place] [address], [place], [address], 05/02/2024 14:22:15 04/21/19 25 01/13/2024 US, trans vagin al No observ ation record ed. [email or web address] Not Available 04/25 15:35:22 05/05/19 25 05/05/2024 US, trans vagin al [facility] [address] [place] [address] Simone jung Name: QUIQUE jung : 975 Simone jung 90 Orderi ng Provid er: COMFORT BEAL GTON EXAM DATE: 2024 EXAM: US [facility] COORDINATOR TRANSV AGINAL CLINIC AL INFORM ATION: Pain [...] Mike Lechuga MD on 025 12:48 PM [facility] Ob[facility]yn [address], [place], [address], 05/12/2024 14:21:13 Result Notes None recorded. Problems No Known Problems Procedures Surgical History Date Name Laterality Status Provider Name and Address Organization Details Recorded Time 04/21/19 25 Pap Smear collection completed COMFORT PARIKH, MAT PACKER [address] [place], [address], [facility] 04/21/2024 12:11:54 04/21/19 25 Endoscopy Nasal; Diagnostic completed [facility] 04/21/2024 09:00:17 03/26/19 21 OT Manual Therapy completed ROSANA MUNOZ/L, CHT [address] [place], [address], [facility] 03/26/2020 16:56:55 03/26/19 21 PT Hot/Cold Pack completed ROSANA MUNOZ/L, CHT [address] [place], [address], [facility] 03/26/2020 16:03:19 03/19/19 21 OT Evaluation - Moderate complexity completed ROSANA MUNOZ/Lavlele, CHT [address] [place], [address] 03/19/2020 08:04:12 04/21/18 97 functional endoscopic sinus surgery completed [facility] 04/21/2024 08:32:30 [facility] 10:03:30 Imaging Results None recorded. Procedure [...] Updated DateTime 03/26/2020 170.18 cm 31.3 kg/m2 38984.47 g 5 220/130 mm[Hg] Eloisa Lemus [facility] 1 15:42:25 Date Recorded Body temperature Body height Body mass index (BMI) Body weight Heart rate Systolic And Diastolic Provider Name and Address Organization Details Last Updated DateTime 5 97.1 [degF] 170.18 cm 35.8 kg/m2 305095. 86 g 102 /min 164/109 mm[Hg] Juan Carlos Earl [facility] 5 08:11:12 Date Recorded Body height Body mass index (BMI) Body weight Systolic And Diastolic Provider Name and Address Organization Details Last Updated DateTime 04/21/2024 170.18 cm 35.1 kg/m2 951037.69 g 160/80 mm[Hg] [facility] 04/21/2024 10:01:17 Social History Question Answer Notes LastModified by Organizat ion Details LastModified Time Tobacco Smoking Status Never Smoker Eloisa Ybarra [facility] 02/22/2020 10:50:00 Which Of Your Hands Is [...] available 03/17 09:09:10 Maternal Aunt Endometrial carcinoma [email or web address] Not available 2024 10:03:20 Medical History No [...] ICD10 Code Diagnosis IMO Codes Diagnosis Note [id number] ZACH LONDONO MD [facility]THOPEDI CS [facility] [address] [place] [address] 02/22/2020 10:44:52 02/22/2020 11:10:45 Trigger finger of left hand [id number] M65.30 Left ring finger, with retinacula r [...] in the past without resolving the issue. [id number] ZACH LONDONO MD SURGERY SCHEDULE [address] [place] [address] 03/13/2020 11:06:54 03/13/2020 11:08:22 [id number] LETTY CALZADA, OTR/L, CHT PHYSICAL THERAPY / HAND THERAPY [facility] [address] [place] [address] 03/19/2020 09:35:49 03/19/2020 10:38:28 Trigger finger of left hand [id number] 0613850 M65.30 TFR Ring Finger [id number] ROSANA MUNOZ/L, CHT PHYSICAL THERAPY / HAND THERAPY [facility] [address] [place] [address] 03/26/2020 15:33:23 03/26/2020 17:16:51 Trigger finger of left hand [id number] 4668043 M65.30 TFR Ring Finger [id number] WILLEM CALDERON PA-C [facility]TH[facility]EDI [facility] [address] [address] 03/26/2020 15:31:29 03/26/2020 15:54:40 Trigger finger of left hand [id number] 9480624 M65.30 doing well status post release of the left ring trigger finger and excision of a retinacula r ganglion cyst. 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 Rec lipid panel with PCP for monitoring . Likely somewhat genetic.Di scussed that there are not great treatment options. hyferation , excision.O ffered to send to Dr. Parry to discuss treatment options - pt declines at this time Solar lentigo [id number] L 81.4 - Benign brown spots- Sun-induce d [id number] TATIANA BHAKTA MD [place] [facility] [address] [place] [address] 04/21/2024 08:03:50 04/21/2024 09:11:30 Nasal congestion 38243208 R09.81 right sided Allergic rhinitis 521101 04 J30.9 immunother apy in childhood Migraine 65170546 G43.90 9 right sided nasal migraine, teo-sensi tivity and fragrance sensitivit y History of nasal sinus surgery 4842416865 24294 Z98.890 1996 @ , ESS and rhinoplast y [id number] COMFORT PARIKH APRN [facility] [address] [place] [address] 04/21/2024 09:45:33 04/21/2024 10:37:12 Screening for malignant neoplasm of cervix 620688765 Z12.4 Gynecologi c examination 53359912 Z01.419 PAP todaywill contact patient with resultspat ient to follow up in one year or sooner as needed Pain in pelvis 99909738 R10.2 patient reports intermitte nt pain in right lower pelvis since Septemberwill evaluate with ultrasound and labspatien t to follow up on same day as ultrasound to discuss results and plan of care Amenorrhea [id number] N91. 2 No menses since 3pati ent reports that she did not have ultrasound or labs that indicated menopausew ill evaluate with labs and ultrasound since patient also reporting pelvic painpatien t to follow up on same day as ultrasound to discuss results and plan of care Screening for malignant neoplasm of colon 720351123 Z12.11 initial routine screening Screening for malignant neoplasm of skin 298262983 Z12.83 routine screening Screening for malignant neoplasm of breast 287134730 Z12.39 repeat mammogram Elevated blood-pressure reading without diagnosis of hypertension 274967971 R03.0 BP today of 160/80Disc ussed elevation [...] ID Guarantor Name 07/18/2024 1 [place] [id number] Pramod Tello [id number] 01 Quique Tello 03/19/2020 1 [place] [id number] Pramod Tello [id number] Quique Tello Notes Date Note Type Note [...] Previous upper extremity surgery? 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 Yes Is this injury associated with a Workers Compensation claim? No patient states she removed her sx dressing on sutures removed WILLEM CALDERON PA-C [address] [place], [address], [facility] 03/26/2020 15:58:00 03/26/2020 text/html Patient History: Pt [...] hand/arm surgery/injury. LETTY CALZADA, OTR/L, CHT [address] [place], [address], [facility] 03/26/2020 16:57:16 03/17/2024 text/html Specific spot to check Location: Spot under left eyebrowGeneral duration: ~2 yearsPredominant symptom:asymptomaticPri or treatment(s):[place] oil, apple cider viengar, histofreezeHistory of evolution:changing PRIYANKA WHITE PA-C [address] [place], [address], [facility] 03/17/2024 12:20:27 04/21/2024 text/html ROS as noted [...] in the past. TATIANA BHAKTA MD [address] [place], [address], [facility] 04/21/2024 18:52:12 04/21/2024 text/html 48 year old [...] with endometrial cancer COMFORT PARIKH APRN [address] [place], [address], [facility] 04/21/2024 12:13:26 OBGyn Episode No OBEpisode recorded.
--- NOTE | 2025-01-13 12:28 | XR_ITS ---
FINAL REPORT CLINICAL HISTORY: stiffness and concern for arthritis COMPARISON: None FINDINGS: RIGHT WRIST Three views demonstrate no acute fracture or dislocation. The visualized joint spaces are normally aligned. No evidence of bony erosion. The bones are well mineralized. The soft tissues are unremarkable. IMPRESSION: No acute bony abnormality. Reviewed, Interpreted and Dictated by Daniel Pinzon MD Transcribed by Aline Dominguez Authenticated and [facility]
--- NOTE | 2025-01-13 12:28 | XR_ITS ---
FINAL REPORT CLINICAL HISTORY: CERVICALGIAN, PAIN, FATIGUE, INFLAMMATION COMPARISON: None FINDINGS: LEFT HAND Three views demonstrate no acute fracture or dislocation. The visualized joint spaces are normally aligned. No evidence of bony erosion. The bones are well mineralized. The soft tissues are unremarkable. IMPRESSION: No acute process. Reviewed, Interpreted and Dictated by Daniel Pinzon MD Transcribed by Aline Dominguez Authenticated and [facility]
--- NOTE | 2025-01-13 12:28 | XR_ITS ---
FINAL REPORT CLINICAL HISTORY: stiffness and concern for arthritis COMPARISON: None FINDINGS: LEFT WRIST Three views demonstrate no acute fracture or dislocation. The visualized joint spaces are normally aligned. No evidence of bony erosion. The bones are well mineralized. The soft tissues are unremarkable. IMPRESSION: No acute bony abnormality. Reviewed, Interpreted and Dictated by Daniel Pinzon MD Transcribed by Aline Dominguez Authenticated and [facility]
--- NOTE | 2025-01-13 12:28 | XR_ITS ---
FINAL REPORT CLINICAL HISTORY: stiffness and concern for arthritis FINDINGS: AP, lateral and odontoid views of the cervical spine were obtained. There is no prior exam for comparison. There is straightening of the normal cervical lordosis. Alignment is otherwise normal. Vertebral body heights are preserved. Multilevel degenerative disc disease is most pronounced at C6-7. Precervical soft tissues are unremarkable. IMPRESSION: Degenerative changes without acute osseous abnormality of the cervical spine. AP and lateral views of the thoracic spine were obtained. There is no prior exam for comparison. There is no acute fracture or acute malalignment. Vertebral body heights are preserved. Mild levoscoliosis is noted of the upper and midthoracic spine. No acute paraspinal abnormality. IMPRESSION: Chronic changes without acute osseous abnormality of the thoracic spine. Reviewed, Interpreted and Dictated by Mamta Saini MD Transcribed by Aline Dominguez Authenticated and [facility]
--- NOTE | 2025-01-13 12:28 | XR_ITS ---
FINAL REPORT CLINICAL HISTORY: stiffness and concern for arthritis COMPARISON: None FINDINGS: RIGHT HAND Three views demonstrate no acute fracture or dislocation. The visualized joint spaces are normally aligned. No evidence of bony erosion. The bones are well mineralized. The soft tissues are unremarkable. IMPRESSION: No acute bony abnormality. Reviewed, Interpreted and Dictated by Daniel Pinzon MD Transcribed by Aline Dominguez Authenticated and [facility]
== END 2025-01-13 23:59 | disposition home or self-care (01) ==
LOC: RAD 12:25
PROVIDERS: PCP Internal Medicine; Visit Provider Student in an Organized Health Care Education/Training Program
DX: M47.812 Spondylosis without myelopathy or radiculopathy, cervical region (principal); M41.84 Other forms of scoliosis, thoracic region; M06.4 Inflammatory polyarthropathy; M35.00 Sjogren syndrome, unspecified; M79.641 Pain in right hand; M79.642 Pain in left hand; R53.83 Other fatigue
CPT/HCPCS: 72083; 73110; 73130